=== PATIENT | male | born 1975 | race Caucasian/White ===

== ENCOUNTER 2016-12-24 12:52 | Emergency (ER) | payer OTHER ==
[~2016-12-24] VITALS: Ht 152.4 cm; Wt 58.5 kg
[~2016-12-24 12:52] MED LIST: ALP2OP10 OP; ATEN50TA PO; LATA2.5D9 OP; MYCO250C6 PO; OMEP20CA16 PO; PRED-253 PO; TACR1CAP26 PO
[2016-12-24 12:55] VITALS: Ht 152.4 cm; Wt 58.5 kg
--- NOTE | 2016-12-24 13:26 | ERA ---
ER Documentation Chief Complaint Date/Time DATE: 12/24/16 TIME: 13:24 Chief Complaint right arm pain, has us dvt rt internal jugular vein and rt basilic vein HPI The patient is a 41-year-old male, presenting to the ER because of abnormal ultrasound of the right upper extremity last week at [facility] ER. It showed thrombosis at the proximal rt IJ vein and basilic vein. He was seen by his physician today who read him to the ER. He also had an arterial ultrasound of the right upper extremity that was negative for any acute abnormality. He had right upper extremity AV fistula ligation by Dr Tovar 4 yrs ago b/c he no longer required HD after kidney transplant. He denies any rt arm pain/cp/dyspnea/abdominal pain. He does not smoke nor drink Past medical history: HTN glaucoma Past surgical history: Kidney transplant, right upper extremity AV fistula ROS All systems reviewed and are negative except as per history of present illness. Medications Home Meds Reported Medications Latanoprost (Xalatan) 2.5 Ml Drops, 1 DROP BOTH EYES QHS, #1 BOTTLE 12/24/16 Brimonidine Tartrate* (Alphagan*) 0.2%-10 Ml Opht Drops, 1 DROP BOTH EYES Q8, BOTTLE 12/24/16 Atenolol* (Atenolol*) 50 Mg Tablet, 50 MG PO BID 03/12/12 Prednisone (Prednisone) 5 Mg Tablet, 5 MG PO DAILY 03/12/12 Mycophenolate Mofetil (Cellcept) 250 Mg Capsule, 750 MG PO BID 03/12/12 Tacrolimus* (Prograf*) 1 Mg Capsule, 3 MG PO BID 03/12/12 Discontinued Reported Medications Latanoprost (Xalatan) 2.5 Ml Drops, 2.5 ML OP DAILY 03/12/12 Brimonidine Tartrate* (Alphagan*) 10 Ml Drops, 10 ML OP DAILY 03/12/12 Omeprazole* (Omeprazole*) 20 Mg Capsule., 40 MG PO DAILY 03/12/12 Allergies Allergies: Coded Allergies: sulfamethoxazole (Verified Allergy, Unknown, HIVES; FEVER, 12/24/16) trimethoprim (Verified Allergy, Unknown, HIVES; FEVER, 12/24/16) PMhx/Soc History of Surgery: Yes (RIGHT AVF PLACEMENT, KIDNEY TRANSPLANT, DIALYSIS CATHETER PLACEMENT) Anesthesia Reaction: No Hx Neurological Disorder: No Hx Respiratory Disorders: No Hx Cardiac Disorders: Yes (HTN) Hx Psychiatric Problems: No Hx Miscellaneous Medical Probl: No Hx Alcohol Use: No Hx Substance Use: No Hx Tobacco Use: No Smoking Status: Never smoker Physical Exam Vitals Vital Signs Date Time Temp Pulse Resp B/P Pulse Ox O2 Delivery O2 Flow Rate FiO2 12/24/16 12:55 98.1 91 18 126/74 97 Physical Exam Const: No acute distress. Head: Atraumatic. Eyes: Normal Conjunctiva. ENT: Normal External Ears, Nose and Mouth. Neck: Full range of motion. No meningismus. Resp: Clear to auscultation bilaterally. Cardio: Regular rate and rhythm. Abd: Soft, non distended, normal bowel sounds, non tender. Skin: No petechiae or rashes. Back: No midline or flank tenderness. Ext: No cyanosis, or edema. Neur: Awake and alert. No focal deficit. RUE AVF w/o thrill, bruit, erythema, tender Psych: Normal Mood and Affect. Procedures/MDM MEDICAL MAKING DECISION: The patient is a 41-year-old male, presenting with thrombosis of the proximal IJ vein and the right basilic vein. He is stable for outpatient follow-up with Dr Tovar Consultation: I discussed the patient with Dr. Le who does not recommend anticoagulation and will see him in the office. Departure Diagnosis: Primary Impression: Thrombosis due to arteriovenous access device for hemodialysis Condition: Good Comments I discussed the findings with the patient. I advised the patient to follow-up with Dr Tovar in about 1-2 days, sooner if needed and return if any concern. MENDOZA VELASCO MD Dec 24, 2016 13:25
[2016-12-24] MEDS ORDERED: ALP2OP10 BOTH EYES (13:56)
[2016-12-24] MEDS ORDERED: LATA2.5D9 BOTH EYES (13:57)
== END 2016-12-24 14:52 | disposition home or self-care (01) ==
LOC: E/R 12:52
DX: T82.868A Thrombosis due to vascular prosthetic devices, implants and grafts, initial encounter (principal); I10 Essential (primary) hypertension; Y82.8 Other medical devices associated with adverse incidents
CPT/HCPCS: 99282